=== PATIENT | male | born 1990 | race Two or more races ===

== ENCOUNTER 2018-12-07 06:38 | Emergency (ER) | payer BC ==
[~2018-12-07] VITALS: Ht 180.3 cm; Wt 99.8 kg
[2018-12-07 06:43] VITALS: BP 131/87
--- NOTE | 2018-12-07 06:45 | NUR ---
PT BIBSELF C/O "THROAT PAIN" X 3 WEEKS. PT AXO4. RESPIRATIONS EVEN AND UNLABORED. PT SPEAKING IN FULL SENTENCES. PENDING EVAL FROM [facility].
--- NOTE | 2018-12-07 07:32 | NUR ---
REPORT GIVEN TO CHERRIE ALLEN FOR HA.
== END 2018-12-07 08:06 | disposition home or self-care (01) ==
LOC: ER 06:54
DX: J30.9 Allergic rhinitis, unspecified (principal); Z60.2 Problems related to living alone
CPT/HCPCS: 86403-TC; 87070-TC

== ENCOUNTER 2024-08-14 21:37 | Emergency (ER) | payer BC ==
[~2024-08-14] VITALS: Ht 180.3 cm; Wt 97.5 kg
[2024-08-14 21:59] VITALS: BP 138/93; TEMP 98.1; O2SAT 98
== END 2024-08-14 22:37 | disposition home or self-care (01) ==
LOC: ER 21:52
DX: S61.210A Laceration without foreign body of right index finger without damage to nail, initial encounter (principal); Z60.2 Problems related to living alone; W26.8XXA Contact with other sharp object(s), not elsewhere classified, initial encounter; Y93.89 Activity, other specified; Y92.098 Other place in other non-institutional residence as the place of occurrence of the external cause; Y99.8 Other external cause status